=== PATIENT | female | born 1975 | race Hispanic/Latino ===

== ENCOUNTER 2017-06-26 19:07 | Inpatient (IN) | payer BC ==
[2017-06-26] VITALS (10 sets, daily range): BP systolic 92–129; BP diastolic 57–70
[~2017-06-26] VITALS: Ht 162.6 cm; Wt 65.3 kg
[~2017-06-26 19:07] MED LIST: ACETAMINOPHEN325 M1 PO; Feosol PO; Motrin PO; NO HOME MEDS; PRENATAL TABLE1 EACH PO; TYLENOL EXTRA500 MG PO; ZANTAC75 M1 PO
[2017-06-26 20:23] LABS: EOSINOPHIL (%) 0.4 % (0-5); HEMATOCRIT 32.9 % (36.0-46.0); IMMATURE GRANULOCYTE (%) 0.6 % (0.0-0.7); INSTRUMENT ABS NEUTROPHIL CT 4.3 K/uL; LYMPHOCYTE COUNT 0.8 K/uL (1.0-2.8); MCH 26.5 PG (29.0-34.0); MCHC 31.6 G/DL (30.0-36.0); MCV 83.7 FL (83-99); MEAN PLAT.VOLUME 11.8 uM^3 (9.5-12.4); MONOCYTE (%) 4.6 % (3-12); MONOCYTE COUNT 0.3 K/uL (0-0.8); NEUTROPHIL (%) 79.2 % (45-76); NEUTROPHIL COUNT 4.3 K/uL (1.8-6.4); PLATELET COUNT 185 K/uL (156-360); RBC DIS.WIDTH-CV 15.3 % (11.8-14.6); RBC DIS.WIDTH-SD 45.3 % (39-53); RED BLOOD COUNT 3.93 M/uL (3.80-5.20); WHITE BLOOD COUNT 5.4 K/uL (4.1-10.2)
[2017-06-27] VITALS (9 sets, daily range): BP systolic 92–143; BP diastolic 55–75
[2017-06-27 01:15] LABS: HEMATOCRIT 26.2 % (36.0-46.0); MCH 27.3 PG (29.0-34.0); MCHC 33.2 G/DL (30.0-36.0); MCV 82.1 FL (83-99); MEAN PLAT.VOLUME 11.9 uM^3 (9.5-12.4); PLATELET COUNT 166 K/uL (156-360); RBC DIS.WIDTH-CV 15.3 % (11.8-14.6); RBC DIS.WIDTH-SD 45.2 % (39-53); RED BLOOD COUNT 3.19 M/uL (3.80-5.20); WHITE BLOOD COUNT 11.3 K/uL (4.1-10.2)
[2017-06-27 01:24] LABS: CHLORIDE 111 mEq/L (99-109); POTASSIUM 4.3 mEq/L (3.7-5.4); SODIUM 138 mEq/L (136-147)
[2017-06-27 01:26] LABS: GLUCOSE 110 mg/dL (70-99)
[2017-06-27 01:28] LABS: ANION GAP 8 MEQ/L (2-14); TOTAL BILIRUBIN 0.2 mg/dL (0.0-1.0)
[2017-06-27 01:30] LABS: ALKALINE PHOSPHATASE 193 IU/L (3-129); GFR ESTIMATE (CALCULATED) > 59 mL/min/
[2017-06-27 01:31] LABS: UREA NITROGEN (BUN) 11 mg/dL (9-23)
[2017-06-27 06:27] LABS: POINT-OF-CARE METER ID UU13113692
[2017-06-27 07:45] LABS: EOSINOPHIL (%) 0.1 % (0-5); HEMATOCRIT 23.3 % (36.0-46.0); IMMATURE GRANULOCYTE (%) 0.8 % (0.0-0.7); IMMATURE GRANULOCYTE COUNT 0.1 K/uL; INSTRUMENT ABS NEUTROPHIL CT 6.2 K/uL; LYMPHOCYTE COUNT 1.1 K/uL (1.0-2.8); MCH 26.7 PG (29.0-34.0); MCHC 32.2 G/DL (30.0-36.0); MCV 82.9 FL (83-99); MONOCYTE (%) 5.9 % (3-12); MONOCYTE COUNT 0.5 K/uL (0-0.8); NEUTROPHIL (%) 78.8 % (45-76); NEUTROPHIL COUNT 6.2 K/uL (1.8-6.4); NRBC (%) 0.3 /100 WBC (0-0); PLATELET COUNT 149 K/uL (156-360); RBC DIS.WIDTH-CV 15.2 % (11.8-14.6); RBC DIS.WIDTH-SD 45.1 % (39-53); RED BLOOD COUNT 2.81 M/uL (3.80-5.20); WHITE BLOOD COUNT 7.8 K/uL (4.1-10.2)
[2017-06-27] MEDS ORDERED: IBUPROFEN800 MG PO (22:20)
[2017-06-27] MEDS ORDERED: CHROMAGEN,1 CAPSULE PO (22:21)
== END 2017-06-27 22:57 | disposition home or self-care (01) | DRG 774 ==
LOC: LDRP-OP 19:07 → 2WEST 19:09 → LDRP-OP 08-09 09:39
PROVIDERS: Advanced Practice Midwife; Obstetrics & Gynecology
DX: O99.02 Anemia complicating childbirth (principal); D62 Acute posthemorrhagic anemia; Z37.0 Single live birth; Z3A.39 39 weeks gestation of pregnancy; O72.1 Other immediate postpartum hemorrhage
CPT/HCPCS: 80053; 82948; 85025; 85027; 90686; C1776; J2590; J7120